=== PATIENT | male | born 1940 | race Caucasian/White ===

== ENCOUNTER 2016-11-16 08:43 | Outpatient (CLI) | payer OTHER ==
[~2016-11-16 08:43] MED LIST: ALLOPURINOL100 MG PO; CHLORTHALIDONE25 MG PO; FISH OIL1000 M1 PO; LOSARTAN POTASS25 MG PO; PRAVACHOL20 MG PO; VITAMIN D-31000 UNIT PO; VOLTAREN1 %
--- NOTE | 2016-11-16 10:49 | DIAGNOSTIC IMAGING REPORT ---
PROCEDURE: US RENAL VASCULAR - BILATERAL INDICATION: NATALIE TECHNIQUE: Cleaning scale and color Doppler sonographic images of the kidneys were performed. Spectral waveform analysis was obtained of the renal arteries, intrarenal vessels, and aorta, including renal resistive indices and calculation of renal to aortic ratios. COMPARISON: None. FINDINGS: AORTIC VELOCITY: 110 RIGHT KIDNEY: Right kidney is of normal size 9.8 x 4.8 x 6.2 cm) with normal morphology. There is a mid pole cyst that measures 2.2 cm RIGHT RENAL ARTERY VELOCITIES: Right renal artery velocities are normal (proximal 111 cm/s; mid n/a cm/s; distal 78 cm/s). RIGHT RENAL AORTIC RATIO: Right renal to aortic ratios are normal (proximal 1.0 mid n/a; distal 0.7 RIGHT RENAL RESISTIVE INDICES: Right renal resistive indices are normal (upper pole 0.61 midpole 0.57 inferior pole 0.59 LEFT KIDNEY: Left kidney is of normal size 11.8 x 5.5 x 5.0 cm) with normal morphology. There is a superior pole cyst that measures 6.6 cm LEFT RENAL ARTERY VELOCITIES: Left renal artery velocities are normal (proximal 130 cm/s; mid 132 cm/s; distal 90 cm/s). LEFT RENAL AORTIC RATIO: Left renal to aortic ratios are normal (proximal 1.2 mid 1.2 distal 0.8 LEFT RENAL RESISTIVE INDICES: Left renal resistive indices are normal (upper pole 0.66 midpole 0.55 inferior pole 0.54 IMPRESSION: 1. Normal renal arteries.
== END 2016-11-16 23:00 ==
LOC: US SRH 08:43
DX: I77.1 Stricture of artery (principal)